=== PATIENT | male | born 1995 | race Caucasian/White ===

== ENCOUNTER 2021-02-19 18:56 | Emergency (ER) | payer OTHER ==
[~2021-02-19] VITALS: Ht 175.3 cm; Wt 95.5 kg
[2021-02-19] MEDS ORDERED: MESA800T8 PO (19:05)
[2021-02-19] MEDS ORDERED: DICYCLOMINE 10 MG CAP PO ONE (21:45)
[2021-02-19] MEDS ORDERED: MORPHINE 4 MG/ML 1ML VIAL/SYRINGE (J2270) IV ONE (21:45)
[2021-02-19] MEDS ORDERED: ONDANSETRON 4MG/2ML VIAL IV ONE (21:45)
[2021-02-19] MEDS ORDERED: NS 1,000 ML IV ONE (21:45)
[2021-02-19 22:09] LABS: BASO % 0.4 % (0.0-1.0); EOS # 0.1 10^3/uL (0.0-0.5); EOS % 1.8 % (0.0-3.0); HEMATOCRIT 33.5 % (42.0-52.0); HEMOGLOBIN 9.7 g/dl (13.5-17.5); LYMPH # 1.2 10^3/uL (1.5-5.0); LYMPH % 25.7 % (24.0-44.0); MEAN CORPUSCULAR HEMOGLOBIN 21.6 pg (27.0-33.0); MEAN CORPUSCULAR VOLUME 74.6 fl (80.0-96.0); MONO # 0.6 10^3/uL (0.0-0.8); MONO % 12.6 % (2.0-8.0); NEUTROPHILS # 2.7 10^3/uL (1.5-8.5); NEUTROPHILS % 59.3 % (36.0-66.0); PLATELET COUNT, AUTOMATED 547 10^3/uL (150-450); RED BLOOD COUNT 4.49 10^6/uL (4.30-6.10); WHITE BLOOD COUNT 4.5 10^3/uL (4.0-10.0)
[2021-02-19] MEDS: GASTROGRAFIN SOLUTION 30ML PO SCH ×2 (22:15→22:46)
[2021-02-19] MEDS ORDERED: ISOVUE-370 76% 100ML VIAL As Ordered ONE (22:28)
[2021-02-19 22:40] LABS: ALBUMIN 3.1 GM/DL (3.2-5.2); ALT/SGPT 13 U/L (12-78); BILIRUBIN,DIRECT < 0.1 MG/DL (0.0-0.2); BILIRUBIN,TOTAL 0.3 MG/DL (0.2-1.0); LIPASE 54 U/L (73-393); TOTAL PROTEIN 6.7 GM/DL (6.4-8.2)
--- NOTE | 2021-02-20 00:32 | REPVR ---
PROCEDURE INFORMATION: Exam: CT Abdomen And Pelvis With Contrast Exam date and time: 02/19/2021 11:52 PM Age: 25 years old Clinical indication: Abdominal pain; Additional info: Abd cramping, diarrhea, history of ulcerative colitis. TECHNIQUE: Imaging protocol: Computed tomography of the abdomen and pelvis with contrast. Radiation optimization: All CT scans at this facility use at least one of these dose optimization techniques: automated exposure control; mA and/or kV adjustment per patient size (includes targeted exams where dose is matched to clinical indication); or iterative reconstruction. Contrast material: ISO 370; Contrast volume: 100 ml; Contrast route: INTRAVENOUS (IV); COMPARISON: No relevant prior studies available. FINDINGS: Liver: Normal. No mass. Gallbladder and bile ducts: Normal. No calcified stones. No ductal dilation. Pancreas: Normal. No ductal dilation. Spleen: Normal. No splenomegaly. Adrenal glands: Normal. No mass. Kidneys and ureters: Normal. No hydronephrosis. Stomach and bowel: Diffuse thickening of the transverse and left colon. No abnormal bowel dilatation. Negative for colonic diverticulitis. Appendix: Appendix is normal. Intraperitoneal space: Unremarkable. No free air. No significant fluid collection. Vasculature: Unremarkable. No abdominal aortic aneurysm. Lymph nodes: Unremarkable. No enlarged lymph nodes. Urinary bladder: Unremarkable as visualized. Reproductive: Prostate is normal in size. Bones/joints: Pectus excavatum. Bilateral L5 spondylolysis. No acute fracture. Benign bone island in the right pubic bone Soft tissues: Unremarkable. IMPRESSION: 1. Diffuse thickening of the transverse and left colon. Consistent with active ulcerative colitis. 2. Bilateral L5 spondylolysis. Electronically signed by: Marietta Evangelista On 02/20/2021 00:31:28 AM
[2021-02-20] MEDS ORDERED: methylPREDNISolone 125MG 2ML VIAL IV ONE (01:25)
[2021-02-20] MEDS ORDERED: PRED20TA PO (01:27)
[2021-02-20] MEDS ORDERED: DICY10CA13 PO (01:27)
[2021-02-20 01:42] VITALS: BP 111/58
== END 2021-02-20 01:58 | disposition home or self-care (01) ==
LOC: M ED 18:56
DX: K51.911 Ulcerative colitis, unspecified with rectal bleeding (principal); M43.06 Spondylolysis, lumbar region; F17.200 Nicotine dependence, unspecified, uncomplicated
CPT/HCPCS: 74177; 80047; 80076; 83690; 85025; 96361; 96374; 96375; 99284; J2270; J2405; J2930; Q9963; Q9967

== ENCOUNTER 2021-03-30 12:44 | Inpatient (IN) | payer OTHER ==
[~2021-03-30] VITALS: Ht 175.3 cm; Wt 89.2 kg
[2021-03-30] MEDS: methylPREDNISolone 125MG 2ML VIAL IV SCH (10:30)
[~2021-03-30 12:44] MED LIST: DICY10CA13 PO; MESA800T8 PO; PRED20TA PO
[2021-03-30] MEDS ORDERED: SULF500T2 PO ×2 (12:52→20:53)
[2021-03-30] MEDS ORDERED: BUDE3CAP PO ×2 (12:52→20:53)
[2021-03-30 14:52] LABS: BASO % 0.2 % (0.0-1.0); EOS % 0.5 % (0.0-3.0); HEMATOCRIT 37.3 % (42.0-52.0); HEMOGLOBIN 10.5 g/dl (13.5-17.5); LYMPH % 12.5 % (24.0-44.0); MEAN CORPUSCULAR HEMOGLOBIN 20.8 pg (27.0-33.0); MEAN CORPUSCULAR HGB CONC 28.2 g/dl (32.0-36.5); MEAN CORPUSCULAR VOLUME 73.9 fl (80.0-96.0); MONO # 0.9 10^3/uL (0.0-0.8); NEUTROPHILS # 6.1 10^3/uL (1.5-8.5); NEUTROPHILS % 75.6 % (36.0-66.0); PLATELET COUNT, AUTOMATED 581 10^3/uL (150-450); RED BLOOD COUNT 5.05 10^6/uL (4.30-6.10)
[2021-03-30 15:21] LABS: ALBUMIN 3.2 GM/DL (3.2-5.2); ALT/SGPT 14 U/L (12-78); BILIRUBIN,DIRECT < 0.1 MG/DL (0.0-0.2); BILIRUBIN,TOTAL 0.2 MG/DL (0.2-1.0); BLOOD UREA NITROGEN 7 MG/DL (7-18); CALCIUM LEVEL 9.2 MG/DL (8.5-10.1); CARBON DIOXIDE LEVEL 27 MEQ/L (21-32); CHLORIDE LEVEL 105 MEQ/L (98-107); CREATININE FOR GFR 1.13 MG/DL (0.70-1.30); GLOMERULAR FILTRATION RATE > 60.0 (>60); GLUCOSE, FASTING 90 MG/DL (70-100); LIPASE 122 U/L (73-393); POTASSIUM SERUM 4.5 MEQ/L (3.5-5.1); SODIUM LEVEL 138 MEQ/L (136-145); TOTAL PROTEIN 6.8 GM/DL (6.4-8.2)
[2021-03-30] MEDS ORDERED: ONDANSETRON 4MG/2ML VIAL IV ONE (17:45)
[2021-03-30] MEDS ORDERED: NS 1,000 ML IV ONE (17:45)
[2021-03-30] MEDS ORDERED: DICYCLOMINE 10 MG CAP PO ONE (17:45)
[2021-03-30] MEDS ORDERED: ISOVUE-370 76% 100ML VIAL As Ordered ONE (18:39)
[2021-03-30] MEDS ORDERED: MORPHINE 4 MG/ML 1ML VIAL/SYRINGE (J2270) IV ONE (18:55)
[2021-03-30] MEDS ORDERED: METOCLOPRAMIDE INJ 10MG/2ML VIAL (J2765 PER 1) IV ONE (18:55)
[2021-03-30] MEDS ORDERED: HOME MED LIST COMPLETE! XX SCH (20:55)
[2021-03-30] MEDS ORDERED: ACETAMINOPHEN TAB 650MG DOSE (2X325MG) PO PRN (21:30)
[2021-03-30] MEDS ORDERED: DEXTROSE 50% 50 ML SYRINGE IV PRN (21:30)
[2021-03-30] MEDS ORDERED: ONDANSETRON 4 MG ORAL DISINTEGRATING TAB SL PRN (21:30)
[2021-03-30] MEDS ORDERED: GLUCOSE 4GM CHEW TABLET PO PRN (21:30)
[2021-03-30] MEDS ORDERED: GLUCAGON INJ 1MG VIAL SC PRN (21:30)
[2021-03-30] MEDS: NS 1,000 ML IV SCH (21:40)
[2021-03-30 22:55] LABS: HEMATOCRIT 36.8 % (42.0-52.0); HEMOGLOBIN 10.2 g/dl (13.5-17.5)
[2021-03-31 05:30] VITALS: BP 141/77
[2021-03-31] MEDS: NS 1,000 ML IV SCH ×3 (06:43→22:40)
[2021-03-31 07:18] LABS: HEMATOCRIT 35.7 % (42.0-52.0); HEMOGLOBIN 10.1 g/dl (13.5-17.5); MEAN CORPUSCULAR HEMOGLOBIN 20.7 pg (27.0-33.0); MEAN CORPUSCULAR HGB CONC 28.3 g/dl (32.0-36.5); PLATELET COUNT, AUTOMATED 582 10^3/uL (150-450); RED BLOOD COUNT 4.89 10^6/uL (4.30-6.10); WHITE BLOOD COUNT 4.7 10^3/uL (4.0-10.0)
[2021-03-31 07:43] LABS: ERYTHROCYTE SEDIMENTATION RATE 15 mm/hr (0-15)
[2021-03-31] MEDS: VANCOMYCIN ORAL SOL 250MG/5ML ORAL SYRINGE PO SCH ×3 (12:29→23:20)
[2021-03-31] MEDS: methylPREDNISolone 125MG 2ML VIAL IV SCH (13:33)
[2021-03-31 14:00] VITALS: BP 129/71
[2021-03-31 22:04] VITALS: BP 125/73
[2021-03-31] MEDS ORDERED: PANTOPRAZOLE 40MG TAB (PROTONIX) PO ONE (22:55)
[2021-04-01 05:00] VITALS: BP 126/74
[2021-04-01] MEDS: HYDROMORPHONE HCL 0.5 MG/ 0.5 ML SYRINGE (J1170 PER 1) IV PRN (05:23)
[2021-04-01] MEDS: ONDANSETRON 4MG/2ML VIAL IV PRN (05:23)
[2021-04-01] MEDS: VANCOMYCIN ORAL SOL 250MG/5ML ORAL SYRINGE PO SCH ×4 (06:02→23:06)
[2021-04-01 06:16] LABS: BASO % 0.1 % (0.0-1.0); EOS % 0.1 % (0.0-3.0); HEMOGLOBIN 9.8 g/dl (13.5-17.5); LYMPH # 1.3 10^3/uL (1.5-5.0); LYMPH % 14.3 % (24.0-44.0); MEAN CORPUSCULAR HEMOGLOBIN 20.6 pg (27.0-33.0); MEAN CORPUSCULAR VOLUME 73.5 fl (80.0-96.0); MONO % 10.7 % (2.0-8.0); NEUTROPHILS # 6.6 10^3/uL (1.5-8.5); NEUTROPHILS % 73.8 % (36.0-66.0); PLATELET COUNT, AUTOMATED 515 10^3/uL (150-450); RED BLOOD COUNT 4.76 10^6/uL (4.30-6.10); WHITE BLOOD COUNT 8.9 10^3/uL (4.0-10.0)
[2021-04-01 06:42] LABS: BLOOD UREA NITROGEN 5 MG/DL (7-18); CALCIUM LEVEL 8.6 MG/DL (8.5-10.1); CARBON DIOXIDE LEVEL 26 MEQ/L (21-32); CHLORIDE LEVEL 112 MEQ/L (98-107); CREATININE FOR GFR 0.87 MG/DL (0.70-1.30); GLOMERULAR FILTRATION RATE > 60.0 (>60); GLUCOSE, FASTING 102 MG/DL (70-100); POTASSIUM SERUM 3.9 MEQ/L (3.5-5.1); SODIUM LEVEL 143 MEQ/L (136-145)
[2021-04-01] MEDS: PANTOPRAZOLE 40MG TAB (PROTONIX) PO SCH (08:30)
[2021-04-01] MEDS: NS 1,000 ML IV SCH ×2 (08:31→18:56)
[2021-04-01] MEDS: KETOROLAC 30 MG/ML 1ML VIAL IV PRN (08:59)
[2021-04-01] MEDS: methylPREDNISolone 125MG 2ML VIAL IV SCH (12:05)
[2021-04-01 14:00] VITALS: BP 139/78
[2021-04-01 20:20] VITALS: BP 137/75
[2021-04-02] MEDS: NS 1,000 ML IV SCH (04:54)
[2021-04-02] MEDS: ONDANSETRON 4MG/2ML VIAL IV PRN (04:54)
[2021-04-02] MEDS: HYDROMORPHONE HCL 0.5 MG/ 0.5 ML SYRINGE (J1170 PER 1) IV PRN (04:55)
[2021-04-02 05:00] VITALS: BP 145/86
[2021-04-02] MEDS: VANCOMYCIN ORAL SOL 250MG/5ML ORAL SYRINGE PO SCH ×3 (05:21→16:59)
[2021-04-02 06:55] LABS: BASO % 0.1 % (0.0-1.0); EOS % 0.1 % (0.0-3.0); HEMATOCRIT 32.8 % (42.0-52.0); HEMOGLOBIN 9.1 g/dl (13.5-17.5); LYMPH # 1.5 10^3/uL (1.5-5.0); LYMPH % 18.1 % (24.0-44.0); MEAN CORPUSCULAR HEMOGLOBIN 20.6 pg (27.0-33.0); MEAN CORPUSCULAR HGB CONC 27.7 g/dl (32.0-36.5); MEAN CORPUSCULAR VOLUME 74.4 fl (80.0-96.0); MONO # 0.9 10^3/uL (0.0-0.8); MONO % 11.6 % (2.0-8.0); NEUTROPHILS # 5.6 10^3/uL (1.5-8.5); PLATELET COUNT, AUTOMATED 499 10^3/uL (150-450); RED BLOOD COUNT 4.41 10^6/uL (4.30-6.10); WHITE BLOOD COUNT 8.1 10^3/uL (4.0-10.0)
[2021-04-02 07:15] LABS: BLOOD UREA NITROGEN 6 MG/DL (7-18); CALCIUM LEVEL 8.6 MG/DL (8.5-10.1); CARBON DIOXIDE LEVEL 26 MEQ/L (21-32); CHLORIDE LEVEL 109 MEQ/L (98-107); CREATININE FOR GFR 0.94 MG/DL (0.70-1.30); GLOMERULAR FILTRATION RATE > 60.0 (>60); GLUCOSE, FASTING 81 MG/DL (70-100); POTASSIUM SERUM 4.3 MEQ/L (3.5-5.1); SODIUM LEVEL 142 MEQ/L (136-145)
[2021-04-02] MEDS: PANTOPRAZOLE 40MG TAB (PROTONIX) PO SCH (08:14)
[2021-04-02] MEDS: KETOROLAC 30 MG/ML 1ML VIAL IV PRN (11:02)
[2021-04-02] MEDS: methylPREDNISolone 125MG 2ML VIAL IV SCH (12:05)
[2021-04-02 14:00] VITALS: BP 127/67
[2021-04-02] MEDS: sulfaSALAzine 500 MG TABEC PO SCH ×2 (16:59→20:54)
[2021-04-02 22:00] VITALS: BP 134/69
[2021-04-03] MEDS: VANCOMYCIN ORAL SOL 250MG/5ML ORAL SYRINGE PO SCH ×2 (00:56→06:13)
[2021-04-03 06:00] VITALS: BP 127/67
[2021-04-03 06:28] LABS: BASO % 0.2 % (0.0-1.0); EOS % 0.1 % (0.0-3.0); HEMOGLOBIN 9.8 g/dl (13.5-17.5); LYMPH # 1.6 10^3/uL (1.5-5.0); LYMPH % 14.6 % (24.0-44.0); MEAN CORPUSCULAR HEMOGLOBIN 20.9 pg (27.0-33.0); MEAN CORPUSCULAR HGB CONC 28.8 g/dl (32.0-36.5); MEAN CORPUSCULAR VOLUME 72.6 fl (80.0-96.0); MONO % 9.5 % (2.0-8.0); NEUTROPHILS # 8.1 10^3/uL (1.5-8.5); NEUTROPHILS % 74.5 % (36.0-66.0); PLATELET COUNT, AUTOMATED 577 10^3/uL (150-450); RED BLOOD COUNT 4.68 10^6/uL (4.30-6.10); WHITE BLOOD COUNT 10.9 10^3/uL (4.0-10.0)
[2021-04-03 06:43] LABS: BLOOD UREA NITROGEN 5 MG/DL (7-18); CALCIUM LEVEL 8.4 MG/DL (8.5-10.1); CARBON DIOXIDE LEVEL 27 MEQ/L (21-32); CHLORIDE LEVEL 108 MEQ/L (98-107); CREATININE FOR GFR 0.98 MG/DL (0.70-1.30); GLOMERULAR FILTRATION RATE > 60.0 (>60); GLUCOSE, FASTING 92 MG/DL (70-100); POTASSIUM SERUM 4.1 MEQ/L (3.5-5.1); SODIUM LEVEL 143 MEQ/L (136-145)
[2021-04-03 08:00] VITALS: BP 131/84
[2021-04-03] MEDS: sulfaSALAzine 500 MG TABEC PO SCH (08:34)
[2021-04-03] MEDS: PANTOPRAZOLE 40MG TAB (PROTONIX) PO SCH (08:35)
[2021-04-03] MEDS: KETOROLAC 30 MG/ML 1ML VIAL IV PRN (08:35)
[2021-04-03] MEDS ORDERED: KETO10TAB PO (09:20)
[2021-04-03] MEDS ORDERED: VANC250C3 PO (09:20)
== END 2021-04-03 12:00 | disposition home or self-care (01) | DRG 372 ==
LOC: M ED 12:44 → M ED INP 12:45 → M MSPAV 03-31 05:16 → OBSVTOIN 03-31 10:37
PROVIDERS: ADMIT Internal Medicine; ATTEND Internal Medicine Nephrology
DX: A04.72 Enterocolitis due to Clostridium difficile, not specified as recurrent (principal); K51.80 Other ulcerative colitis without complications

== ENCOUNTER 2021-07-04 08:42 | Emergency (ER) | payer OTHER ==
[~2021-07-04] VITALS: Ht 175.3 cm; Wt 97.7 kg
[~2021-07-04 08:42] MED LIST changes: +BUDE3CAP PO; +KETO10TAB PO; +SULF500T2 PO; +VANC250C3 PO
[2021-07-04] MEDS ORDERED: LIDO1CRE2 TOP (11:51)
[2021-07-04] MEDS ORDERED: METH-1165 PO (11:51)
[2021-07-04 12:10] VITALS: BP 136/71
== END 2021-07-04 12:12 | disposition home or self-care (01) ==
LOC: M ED 08:42
DX: M79.604 Pain in right leg (principal); M79.605 Pain in left leg; K51.90 Ulcerative colitis, unspecified, without complications; Z79.899 Other long term (current) drug therapy

== ENCOUNTER 2021-09-04 15:14 | Outpatient (CLI) | payer OTHER ==
[~2021-09-04] VITALS: Ht 175.3 cm; Wt 102.3 kg
[~2021-09-04 15:14] MED LIST changes: +LIDO1CRE2 TOP; +METH-1165 PO
[2021-09-04] MEDS ORDERED: VEDOLIZUMAB 300 MG in NS 250 ML IV ONE ×4 (15:30)
[2021-09-04] MEDS ORDERED: IRON65TA2 PO (16:03)
[2021-09-04] MEDS ORDERED: THERTAB52 PO (16:04)
[2021-09-04 16:42] VITALS: BP 134/74
[2021-09-04 17:00] VITALS: BP 140/83
== END 2021-09-04 17:00 ==
LOC: M INFU 15:14
PROVIDERS: ATTEND Internal Medicine Gastroenterology
DX: K51.90 Ulcerative colitis, unspecified, without complications (principal)
CPT/HCPCS: 96365; J3380

== ENCOUNTER 2021-09-18 15:30 | Outpatient (CLI) | payer OTHER ==
[~2021-09-18] VITALS: Ht 175.3 cm; Wt 103.0 kg
[2021-09-18 14:40] VITALS: BP 127/71
[~2021-09-18 15:30] MED LIST changes: +IRON65TA2 PO; +THERTAB52 PO; +VEDOLIZUMAB 300 MG in NS 250 ML IV ONE
[2021-09-18 16:25] VITALS: BP 141/81
== END 2021-09-18 16:40 | disposition home or self-care (01) ==
LOC: M INFU 15:30
PROVIDERS: ATTEND Internal Medicine Gastroenterology
DX: K51.90 Ulcerative colitis, unspecified, without complications (principal)
CPT/HCPCS: 96365; J3380

== ENCOUNTER 2021-10-16 15:00 | Outpatient (CLI) | payer OTHER ==
[~2021-10-16 15:00] MED LIST changes: -VEDOLIZUMAB 300 MG in NS 250 ML IV ONE
[2021-10-16 15:12] VITALS: BP 134/75
[2021-10-16] MEDS ORDERED: VEDOLIZUMAB 300 MG in NS 250 ML IV ONE (15:30)
== END 2021-10-16 16:00 | disposition home or self-care (01) ==
LOC: M INFU 15:00
PROVIDERS: ATTEND Internal Medicine Gastroenterology
DX: K51.90 Ulcerative colitis, unspecified, without complications (principal)
CPT/HCPCS: 96365; J3380

== ENCOUNTER 2021-12-11 15:20 | Outpatient (CLI) | payer OTHER ==
[~2021-12-11] VITALS: Ht 175.3 cm; Wt 113.6 kg
[2021-12-11 15:25] VITALS: BP 169/81
[2021-12-11] MEDS ORDERED: VEDOLIZUMAB 300 MG in NS 250 ML IV ONE (15:30)
[2021-12-11 16:25] VITALS: BP 132/66
== END 2021-12-11 16:25 | disposition home or self-care (01) ==
LOC: M INFU 15:20
PROVIDERS: ATTEND Internal Medicine Gastroenterology
DX: K50.90 Crohn's disease, unspecified, without complications (principal)
CPT/HCPCS: 96365; J3380

== ENCOUNTER → 2021-12-28 | Outpatient (REF) | LOC: M PLAIMG 08:26 | PROVIDERS: ATTEND Internal Medicine | DX: Z11.52 Encounter for screening for COVID-19 (principal) ==

== ENCOUNTER → 2022-01-24 | Outpatient (REF) | LOC: M PLALAB 11:28 | PROVIDERS: ATTEND Internal Medicine | DX: R52 Pain, unspecified (principal) ==

== ENCOUNTER 2022-02-05 15:15 | Outpatient (CLI) | payer OTHER ==
[~2022-02-05] VITALS: Ht 175.3 cm; Wt 118.0 kg
[2022-02-05] MEDS ORDERED: VEDOLIZUMAB 300 MG in NS 250 ML IV ONE (15:30)
[2022-02-05 15:38] VITALS: BP 168/78
[2022-02-05 16:30] VITALS: BP 152/82
== END 2022-02-05 16:30 | disposition home or self-care (01) ==
LOC: M INFU 15:15
PROVIDERS: ATTEND Internal Medicine Gastroenterology
DX: K51.90 Ulcerative colitis, unspecified, without complications (principal)
CPT/HCPCS: 96365; J3380

== ENCOUNTER 2022-03-06 16:27 | Emergency (ER) | payer OTHER ==
[~2022-03-06] VITALS: Ht 175.3 cm; Wt 119.5 kg
[2022-03-06] MEDS ORDERED: ENTY1INJ IV (17:07)
[2022-03-06 21:06] LABS: BASO # 0.1 10^3/uL (0.0-0.2); BASO % 0.7 % (0.0-1.0); EOS # 0.1 10^3/uL (0.0-0.5); EOS % 1.8 % (0.0-3.0); HEMATOCRIT 45.9 % (42.0-52.0); HEMOGLOBIN 16.2 g/dl (13.5-17.5); LYMPH # 2.1 10^3/uL (1.5-5.0); MEAN CORPUSCULAR HEMOGLOBIN 29.8 pg (27.0-33.0); MEAN CORPUSCULAR HGB CONC 35.3 g/dl (32.0-36.5); MEAN CORPUSCULAR VOLUME 84.4 fl (80.0-96.0); MONO # 0.8 10^3/uL (0.0-0.8); MONO % 10.7 % (2.0-8.0); NEUTROPHILS # 4.2 10^3/uL (1.5-8.5); NEUTROPHILS % 57.5 % (36.0-66.0); PLATELET COUNT, AUTOMATED 406 10^3/uL (150-450); RED BLOOD COUNT 5.44 10^6/uL (4.30-6.10); WHITE BLOOD COUNT 7.2 10^3/uL (4.0-10.0)
[2022-03-06 21:16] LABS: INR 0.98; PROTHROMBIN TIME 13.2 SECONDS (12.5-14.5)
[2022-03-06 21:17] LABS: PARTIAL THROMBOPLASTIN TIME 26.2 SECONDS (24.8-34.2)
[2022-03-06 21:36] LABS: ETHYL ALCOHOL (ETHANOL) 0.005 % (0.000-0.010); MAGNESIUM LEVEL 1.9 MG/DL (1.8-2.4); RSV AMPLIFICATION NEGATIVE (NEGATIVE)
[2022-03-06 21:37] LABS: BLOOD UREA NITROGEN 13 MG/DL (9-23); CALCIUM LEVEL 9.8 MG/DL (8.5-10.1); CARBON DIOXIDE LEVEL 29 MMOL/L (20-31); CHLORIDE LEVEL 103 MMOL/L (98-107); CPK CREATINE PHOSPHOKINASE 244 U/L (46-171); GLOMERULAR FILTRATION RATE > 60.0 (>60); GLUCOSE, FASTING 90 MG/DL (60-100); POTASSIUM SERUM 4.4 MMOL/L (3.5-5.1); SODIUM LEVEL 140 MMOL/L (136-145)
[2022-03-06 21:40] LABS: THYROID STIMULATING HORMONE 2.115 uIU/ML (0.55-4.78)
[2022-03-06 22:39] LABS: CK-MB VALUE MASS < 1.0 NG/ML (<3.6)
[2022-03-06 22:46] LABS: CPK CREATINE PHOSPHOKINASE 226 U/L (46-171); MB/CK RELATIVE INDEX 0.44 (< OR =4)
[2022-03-06 23:59] LABS: AMPHETAMINES LEVEL URINE NEGATIVE (NEGATIVE); BARBITURATES URINE NEGATIVE (NEGATIVE); BENZODIAZEPINES URINE NEGATIVE (NEGATIVE); COCAINE METABOLITE URINE NEGATIVE (NEGATIVE); METHADONE URINE NEGATIVE (NEGATIVE)
[2022-03-07 00:01] LABS: CANNABINOIDS URINE NEGATIVE (NEGATIVE); OPIATES URINE NEGATIVE (NEGATIVE); PHENCYCLIDINE URINE NEGATIVE (NEGATIVE)
[2022-03-07 02:00] VITALS: BP 103/59
== END 2022-03-07 02:14 | disposition home or self-care (01) ==
LOC: M ED 21:54
DX: R55 Syncope and collapse (principal); R94.31 Abnormal electrocardiogram [ECG] [EKG]; I45.10 Unspecified right bundle-branch block; D64.9 Anemia, unspecified; Z79.83 Long term (current) use of bisphosphonates; Z79.810 Long term (current) use of selective estrogen receptor modulators (SERMs); Z79.899 Other long term (current) drug therapy

== ENCOUNTER 2022-04-02 15:15 | Outpatient (CLI) | payer OTHER ==
[~2022-04-02] VITALS: Ht 175.3 cm; Wt 118.2 kg
[2022-04-02 15:15] VITALS: BP 138/68
[~2022-04-02 15:15] MED LIST changes: +ENTY1INJ IV
[2022-04-02] MEDS ORDERED: VEDOLIZUMAB 300 MG in NS 250 ML IV ONE (15:30)
[2022-04-02 16:20] VITALS: BP 137/87
== END 2022-04-02 16:20 | disposition home or self-care (01) ==
LOC: M INFU 15:15
PROVIDERS: ATTEND Internal Medicine Gastroenterology
DX: K51.90 Ulcerative colitis, unspecified, without complications (principal)
CPT/HCPCS: 96365; J3380

== ENCOUNTER 2022-04-03 11:16 | Emergency (ER) | payer OTHER ==
[~2022-04-03] VITALS: Ht 175.3 cm; Wt 118.2 kg
[2022-04-03 12:56] LABS: BASO % 0.5 % (0.0-1.0); EOS # 0.1 10^3/uL (0.0-0.5); EOS % 1.8 % (0.0-3.0); HEMOGLOBIN 15.9 g/dl (13.5-17.5); LYMPH # 1.6 10^3/uL (1.5-5.0); LYMPH % 27.5 % (24.0-44.0); MEAN CORPUSCULAR HEMOGLOBIN 29.3 pg (27.0-33.0); MEAN CORPUSCULAR HGB CONC 34.6 g/dl (32.0-36.5); MEAN CORPUSCULAR VOLUME 84.9 fl (80.0-96.0); MONO # 0.6 10^3/uL (0.0-0.8); MONO % 11.1 % (2.0-8.0); NEUTROPHILS # 3.3 10^3/uL (1.5-8.5); NEUTROPHILS % 58.7 % (36.0-66.0); PLATELET COUNT, AUTOMATED 408 10^3/uL (150-450); RED BLOOD COUNT 5.42 10^6/uL (4.30-6.10); WHITE BLOOD COUNT 5.7 10^3/uL (4.0-10.0)
[2022-04-03 13:16] LABS: BLOOD UREA NITROGEN 12 MG/DL (9-23); CALCIUM LEVEL 9.6 MG/DL (8.5-10.1); CARBON DIOXIDE LEVEL 29 MMOL/L (20-31); CHLORIDE LEVEL 106 MMOL/L (98-107); CREATININE FOR GFR 0.95 MG/DL (0.70-1.30); GLOMERULAR FILTRATION RATE > 60.0 (>60); GLUCOSE, FASTING 86 MG/DL (60-100); POTASSIUM SERUM 4.6 MMOL/L (3.5-5.1); SODIUM LEVEL 139 MMOL/L (136-145)
[2022-04-03 16:37] VITALS: BP 150/88
== END 2022-04-03 16:39 | disposition home or self-care (01) ==
LOC: EDBD 11:16 → M ED 11:16
DX: R55 Syncope and collapse (principal); R42 Dizziness and giddiness; R20.2 Paresthesia of skin; I45.10 Unspecified right bundle-branch block; K51.90 Ulcerative colitis, unspecified, without complications; Z79.83 Long term (current) use of bisphosphonates

== ENCOUNTER 2022-05-28 15:30 | Outpatient (CLI) | payer OTHER ==
[~2022-05-28] VITALS: Ht 175.3 cm; Wt 118.0 kg
[2022-05-28 13:55] VITALS: BP 146/81
[~2022-05-28 15:30] MED LIST changes: +VEDOLIZUMAB 300 MG in NS 250 ML IV ONE
[2022-05-28 16:33] VITALS: BP 156/92
== END 2022-05-28 16:35 | disposition home or self-care (01) ==
LOC: M INFU 15:30
PROVIDERS: ATTEND Internal Medicine Gastroenterology
DX: K51.90 Ulcerative colitis, unspecified, without complications (principal)
CPT/HCPCS: 96365; G0463; J3380

== ENCOUNTER 2022-06-25 15:30 | Outpatient (CLI) | payer OTHER ==
[~2022-06-25] VITALS: Ht 175.3 cm; Wt 133.5 kg
[2022-06-25 15:30] VITALS: BP 126/68
[2022-06-25 16:41] VITALS: BP 136/89
== END 2022-06-25 16:43 ==
LOC: M INFU 15:30
PROVIDERS: ATTEND Internal Medicine Gastroenterology
DX: K51.90 Ulcerative colitis, unspecified, without complications (principal)
CPT/HCPCS: 96365; J3380

== ENCOUNTER 2022-07-03 10:46 | Emergency (ER) | payer OTHER ==
[~2022-07-03] VITALS: Ht 175.3 cm; Wt 134.6 kg
[~2022-07-03 10:46] MED LIST changes: -VEDOLIZUMAB 300 MG in NS 250 ML IV ONE
[2022-07-03 13:39] LABS: BASO # 0.1 10^3/uL (0.0-0.2); BASO % 1.1 % (0.0-1.0); EOS # 0.4 10^3/uL (0.0-0.5); HEMATOCRIT 43.9 % (42.0-52.0); HEMOGLOBIN 15.6 g/dl (13.5-17.5); LYMPH # 1.9 10^3/uL (1.5-5.0); LYMPH % 34.9 % (24.0-44.0); MEAN CORPUSCULAR HEMOGLOBIN 29.4 pg (27.0-33.0); MEAN CORPUSCULAR HGB CONC 35.5 g/dl (32.0-36.5); MEAN CORPUSCULAR VOLUME 82.8 fl (80.0-96.0); MONO # 0.5 10^3/uL (0.0-0.8); MONO % 9.9 % (2.0-8.0); NEUTROPHILS # 2.5 10^3/uL (1.5-8.5); NEUTROPHILS % 45.7 % (36.0-66.0); PLATELET COUNT, AUTOMATED 382 10^3/uL (150-450); WHITE BLOOD COUNT 5.4 10^3/uL (4.0-10.0)
[2022-07-03 13:55] LABS: INR 1.02; PROTHROMBIN TIME 13.6 SECONDS (12.5-14.5)
[2022-07-03 14:14] LABS: ALKALINE PHOSPHATASE 89 U/L (46-116); ALT/SGPT 111 U/L (7.0-40); AST/SGOT 65 U/L (<34); BILIRUBIN,DIRECT < 0.1 MG/DL (<0.4); BILIRUBIN,TOTAL 0.3 MG/DL (0.3-1.2); BLOOD UREA NITROGEN 16 MG/DL (9-23); CALCIUM LEVEL 9.5 MG/DL (8.5-10.1); CARBON DIOXIDE LEVEL 23 MMOL/L (20-31); CHLORIDE LEVEL 105 MMOL/L (98-107); CK-MB VALUE MASS 1.4 NG/ML (<3.6); CREATININE FOR GFR 0.93 MG/DL (0.70-1.30); GLOMERULAR FILTRATION RATE > 60.0 (>60); GLUCOSE, FASTING 85 MG/DL (60-100); POTASSIUM SERUM 4.8 MMOL/L (3.5-5.1); SODIUM LEVEL 138 MMOL/L (136-145); TOTAL PROTEIN 6.9 G/DL (5.7-8.2)
[2022-07-03 14:19] LABS: CPK CREATINE PHOSPHOKINASE 346 U/L (46-171)
[2022-07-03 14:53] VITALS: BP 147/84
== END 2022-07-03 15:52 | disposition home or self-care (01) ==
LOC: M ED 10:46
DX: R22.43 Localized swelling, mass and lump, lower limb, bilateral (principal); M79.605 Pain in left leg; I45.10 Unspecified right bundle-branch block; K51.90 Ulcerative colitis, unspecified, without complications; Z79.83 Long term (current) use of bisphosphonates

== ENCOUNTER 2022-08-30 15:15 | Outpatient (CLI) | payer OTHER ==
[~2022-08-30] VITALS: Ht 175.3 cm; Wt 138.3 kg
[~2022-08-30 15:15] MED LIST changes: +DICY-61 PO; -DICY10CA13 PO
[2022-08-30] MEDS ORDERED: VEDOLIZUMAB 300 MG in NS 250 ML IV ONE (15:30)
[2022-08-30 15:45] VITALS: BP 137/82; O2SAT 97
[2022-08-30 16:30] VITALS: BP 141/79; O2SAT 98
== END 2022-08-30 16:30 ==
LOC: M INFU 15:15
PROVIDERS: ATTEND Internal Medicine Gastroenterology
DX: K51.90 Ulcerative colitis, unspecified, without complications (principal)
CPT/HCPCS: 96365; J3380